=== PATIENT | female | born 1950 | race Caucasian/White ===

== ENCOUNTER 2023-05-16 12:11 | Emergency (ER) | payer OTHER ==
[2023-05-16 12:35] VITALS: BP 120/72; PULSE 72; RESP 19; TEMP 97.5; BMI 30.9
[2023-05-16 13:44] LABS: BASO % 0.7 % (0-2.0); HEMATOCRIT 40.8 % (32.4-45.2); HEMOGLOBIN 13.9 GM/dL (10.7-15.3); LYMPH % 20.9 % (8-40); MCH 29.6 pg (25.7-33.7); MCHC 34.1 g/dl (32.0-36.0); MEAN PLT VOLUME 7.2 fl (7.5-11.1); MONO % 7.8 % (3.8-10.2); NEUT % 68.6 % (42.8-82.8); PLATELET COUNT 402 10^3/uL (134-434); RDW 14.1 % (11.6-15.6); WHITE BLOOD COUNT 11.9 K/mm3 (4.0-10.0)
[2023-05-16 14:01] LABS: BLOOD UREA NITROGEN 13.4 mg/dL (7-18)
[2023-05-16 14:02] LABS: ALBUMIN 3.9 g/dl (3.4-5.0); CALCIUM 8.8 mg/dL (8.5-10.1)
[2023-05-16 14:06] LABS: CREATININE 0.9 mg/dL (0.55-1.3)
[2023-05-16 14:07] LABS: BILIRUBIN,TOTAL 0.5 mg/dL (0.2-1); TOT PROT 7.2 g/dl (6.4-8.2)
[2023-05-16 14:10] LABS: N-TERMINAL BNP 129.8 pg/ml (5-125)
[2023-05-16] MEDS ORDERED: AZITHROMYCIN 250 MG TABLET PO ONE (16:23)
[2023-05-16] MEDS ORDERED: AZITHROMYCIN 500 MG TABLET ONE (16:24)
== END 2023-05-16 16:40 | disposition home or self-care (01) ==
LOC: JER 12:11
DX: R09.02 Hypoxemia (principal); R05.9 Cough, unspecified; R09.81 Nasal congestion; Z20.822 Contact with and (suspected) exposure to COVID-19
CPT/HCPCS: 0241U-QW; 36415; 71046-TC-FY; 80053; 83880; 84484; 85025; 93005; 93010; 99285-25